=== PATIENT | male | born 1995 | race Hispanic/Latino ===

== ENCOUNTER 2019-07-13 00:33 | Emergency (ER) | payer SELFPAY ==
[~2019-07-13] VITALS: Ht 177.8 cm; Wt 76.7 kg
[2019-07-13] MEDS ORDERED: BACITRACIN ZINC 0.9GM TP ONE ×2 (01:09→04:00)
[2019-07-13] MEDS ORDERED: ACETAMINOPHEN 325 MG TAB PO ONE (01:45)
--- NOTE | 2019-07-13 02:44 | Diagnostic Imaging Report ---
EXAMINATION: Head CT without contrast. HISTORY:Trauma. COMPARISON:None. TECHNIQUE: Multidetector axial images were obtained from the foramen magnum to the vertex without contrast. The images were reconstructed using brain and bone algorithms. Thin section brain images were reformatted into coronal and sagittal planes. Dose modulation, iterative reconstruction, and/or weight based adjustment of the mA/kV was utilized to reduce the radiation dose to as low as reasonably achievable. Intravenous contrast: None IMAGE QUALITY: Acceptable. FINDINGS: Skull/scalp: Mild left frontal scalp soft tissue edema/hematoma and soft tissue emphysema with laceration. Acute depressed and comminuted fracture involving the anterior and posterior wall of left frontal sinus that extends to the inferior aspect of left frontal calvarium. Approximately 3 mm depressed fracture fragments. Parenchyma: Questionable focal cortical-based hyperdensity in the anterior and inferior aspect of left frontal lobe may either represent an artifact or cortical contusion. No acute hemorrhage, mass or acute major vascular territorial infarct. Arteries: No density suggestive of thrombosis. Dural sinuses: No abnormal density suggestive of thrombosis. Ventricles: No hydrocephalus or displacement. Extra-axial spaces: Posterior fossa, retrocerebellar small extra-axial cystic lesion with minimal regional mass effect represents an arachnoid cyst. Brain volume: Normal for age. Craniocervical junction: No mass, Chiari malformation, or basilar invagination. Sella: No mass. Paranasal/mastoid sinuses: Trace hemorrhagic opacification of left frontal sinus. Small polyp/retention cyst in right maxillary sinus. IMPRESSION: 1. Mild left frontal scalp soft tissue edema/hematoma and laceration. 2. Acute comminuted and depressed fracture of left frontal sinus dorado and inferior aspect of left frontal calvarium. 3. Questionable focal cortical contusion vs artifact in the anterior/inferior aspect of left frontal lobe. Findings were informed to ER physician Dr. Mckinnon by phone at 2:35 AM on 07/13/2019. Signed by: Dr. Marizol Emery M.D. on 07/13/2019 2:41 AM
--- NOTE | 2019-07-13 02:47 | NUR ---
Contacted [facility] for [facility] [facility] Transfer
--- NOTE | 2019-07-13 02:52 | Diagnostic Imaging Report ---
History:Trauma. Comparison studies: None Technique: Axial images were obtained through the maxillofacial region. Coronal and sagittal images reconstructed from the axial data. Dose modulation, iterative reconstruction, and/or weight based adjustment of the mA/kV was utilized to reduce the radiation dose to as low as reasonably achievable. Intravenous contrast: None Findings: Soft tissues: Mild left frontal scalp and forehead soft tissue edema/hematoma and laceration. Mild left perinasal and periorbital soft tissue edema/hematoma. Bones: Acute comminuted fracture of the anterior and posterior dorado of left frontal sinus. Acute displaced and depressed fracture of inferior aspect of left frontal calvarium,, depressed fracture fragment by approximately 3 mm. Small focal pneumocephalus adjacent to the fracture site in the left inferior frontal region. Acute displaced fracture of left nasal bone and left frontal process of maxilla. Deviation of nasal septum to the right. Suboptimal evaluation for fracture of the mandible due to motion artifacts. Orbits: Globes: Intact Extra or intraconal abnormalities: None. Paranasal sinuses: Partial hemorrhagic opacification of left frontal sinus. Mild mucosal thickening in left ethmoid and left maxillary sinus. Small polyp/retention cyst in right maxillary sinus. IMPRESSION: 1. Mild left frontal scalp and focal red soft tissue laceration, edema/hematoma. Mild left perinasal and periorbital soft tissue edema/hematoma. 2. Acute displaced fracture of left nasal bone and frontal process of left maxilla. 3. Acute comminuted fracture of left frontal sinus, acute displaced and depressed fracture of left frontal calvarium. Signed by: Dr. Marizol Emery M.D. on 07/13/2019 2:48 AM
--- NOTE | 2019-07-13 02:58 | NUR ---
Doc to Doc initiated
[2019-07-13] MEDS ORDERED: CEFTRIAXONE SOD 1 GM/NS 50 ML 50 ML IV ONE (03:00)
[2019-07-13] MEDS ORDERED: VANCOMYCIN 1GM/NS 250 ML 250 ML IV ONE (03:00)
--- NOTE | 2019-07-13 03:05 | NUR ---
Bed acceptance to [place] [facility] report to be called to [phone] facesheet and MOT to be faxed to [phone]
[2019-07-13] MEDS ORDERED: CEFTRIAXONE SOD 1 GM VIAL ONE (03:29)
--- NOTE | 2019-07-13 03:37 | NUR ---
[facility] called to transport pt to [place]
[2019-07-13] MEDS ORDERED: LIDOCAINE 1% W/EPINEPHRINE 20 ML VIAL INJ ONE (04:00)
--- NOTE | 2019-07-13 04:27 | NUR ---
Report to GABRIELA Anton at [facility]
[2019-07-13 04:52] VITALS: BP 140/86
== END 2019-07-13 04:55 | disposition other institution (70) ==
LOC: FSED 00:33
DX: S02.0XXB Fracture of vault of skull, initial encounter for open fracture (principal); S02.2XXA Fracture of nasal bones, initial encounter for closed fracture; V89.2XXA Person injured in unspecified motor-vehicle accident, traffic, initial encounter; W22.09XA Striking against other stationary object, initial encounter; Y92.89 Other specified places as the place of occurrence of the external cause
CPT/HCPCS: 12013; 70450; 70486; 96374; 99284; J0696 ×2; J3370